=== PATIENT | female | born 1985 | race African-American/Black ===

== ENCOUNTER 2017-01-09 09:18 | Emergency (ER) | payer OTHER ==
[2017-01-09 10:00] VITALS: BP 103/53
[2017-01-09] MEDS ORDERED: Ketorolac INJ* 30 MG/ML 1 ML VIAL IM ONE (10:21)
[2017-01-09] MEDS ORDERED: Ondansetron ODT TAB* 4 MG PO ONE (10:22)
--- NOTE | 2017-01-09 11:17 | UC ---
Abdominal Pain Female HPI - HPI Summary HPI Summary: 31 yo female with the onset of severe RUQ abd pain and nausea that started yesterday no fever no vomitng no relief with motrin states she was dxed with gallstones a few months ago was supposed to see a surgeon to have it out but moved here states she saw a gi doctor (first name Jonas) on [address] had blood work and MRI states she has an appt with him this week () - History of Current Complaint Chief Complaint: UCAbdominalPain Stated Complaint: ABDOMINAL COMPLAINT Time Seen by Provider: 01/09/17 10:16 Hx Obtained From: Patient Hx Last Menstrual Period: 12/25/16 Onset/Duration: Sudden Onset, Lasting Hours Timing: Constant Severity Initially: Severe Severity Currently: Severe Pain Intensity: 8 Pain Scale Used: 0-10 Numeric Location: Discrete At: RUQ Radiates: No Character: Sharp Aggravating Factor(s): Nothing Alleviating Factor(s): Nothing Associated Signs and Symptoms: Positive: Decreased Appetite, Nausea. Negative: Diaphoresis, Fever, Cough, Chest Pain, Dizzy, Back Pain, Constipation, Blood in Stool, Urinary Symptoms, Vaginal Bleeding, Vaginal Discharge, Vomiting, Diarrhea Allergies/Adverse Reactions: Allergies Allergy/AdvReac Type Severity Reaction Status Date / Time Hydrocodone [From Vicodin] Allergy Eyes Verified 01/09/17 09:48 Itchy/Swollen/Red/Watery PMH/Surg Hx/FS Hx/Imm Hx Previously Healthy: Yes - known gall stones - Surgical History Surgical History: None - Family History Known Family History: Positive: Hypertension, Diabetes - Social History Alcohol Use: None Substance Use Type: None Smoking Status (MU): Never Smoked Tobacco Review of Systems Constitutional: Negative Skin: Negative Eyes: Negative ENT: Negative Respiratory: Negative Cardiovascular: Negative Gastrointestinal: Abdominal Pain Genitourinary: Negative Motor: Negative Neurovascular: Negative Musculoskeletal: Negative Neurological: Negative Psychological: Negative All Other Systems Reviewed And Are Negative: Yes Physical Exam Triage Information Reviewed: Yes Appearance: Well-Appearing, Well-Nourished, Pain Distress Vital Signs: Initial Vital Signs Temp 100.1 F 01/09/17 09:50 Pulse 87 01/09/17 09:50 Resp 20 01/09/17 09:50 BP 103/53 01/09/17 09:50 Pulse Ox 100 01/09/17 09:50 Eyes: Positive: Conjunctiva Clear ENT: Positive: Hearing grossly normal, Pharynx normal. Negative: Nasal congestion, Nasal drainage, Tonsillar swelling, Tonsillar exudate, Trismus, Muffled/hoarse voice Dental: Negative: Gross Decay/Caries @, Dental Fracture @, Abscess @ Neck: Positive: Supple, Nontender Respiratory: Positive: Lungs clear, Normal breath sounds, No respiratory distress, No accessory muscle use Cardiovascular: Positive: RRR, No Murmur Abdomen Description: Positive: Soft. Negative: Nontender - tender RUQ, Distended, Hepatomegaly, Splenomegaly Bowel Sounds: Positive: Present Musculoskeletal: Positive: ROM Intact, No Edema Neurological: Positive: Alert Psychological Exam: Normal Skin Exam: Normal Re-Evaluation - Re-Evaluation First Eval Re-Evaluation Time: 11:20 Change: Improved - some decreased pain/no nausea Abd Pain Female Course/Dx - Course Course Of Treatment: states she can take percocets - Differential Dx/Diagnosis Provider Diagnoses: Gall Bladder disease Discharge - Discharge Plan Condition: Stable Disposition: HOME Prescriptions: Ondansetron TAB* [Zofran Tab*] 4 mg PO Q6H PRN #10 tab PRN Reason: Nausea oxyCODONE/Acetamin 5/325 MG* [Percocet 5/325 TAB*] 1 tab PO Q4H PRN #16 tab MDD 4 PRN Reason: Pain - Severe Patient Education Materials: Gallstones (ED) Forms: *Work Release Referrals: Tayo Birch MD [Medical Doctor] - As Soon As Possible (SURGEON) Non Staff,Doctor [Primary Care Provider] - Additional Instructions: See your provider Thurs as planned if things get worse: Increase PAIN, VOMITING, FEVER or if your urine turns dark...you need to go to the ER you will need to see a surgeon to have your gall bladder out
== END 2017-01-09 11:40 | disposition home or self-care (01) ==
LOC: UCEAST 09:18
DX: K82.9 Disease of gallbladder, unspecified (principal); Z88.5 Allergy status to narcotic agent
CPT/HCPCS: 99202; A9270-GY; G0463; J1885

== ENCOUNTER 2019-01-09 19:06 | Emergency (ER) | payer OTHER ==
[2019-01-09 19:19] VITALS: BP 118/66
--- NOTE | 2019-01-09 19:40 | UC ---
Abdominal Pain Female HPI - HPI Summary HPI Summary: 33 yo female presents with pelvic pain. She tells me that for the last 3 days she has had b/l pelvic pain that is worse in the LLQ. Today she began to have some spotting vaginal bleeding. Her LMP was 1 week ago and was normal per pt. She states she is usually very regular with her menstrual cycle and this spotting is abnormal for her. She does not take any control and has been having unprotected intercourse with her boyfriend. She mentions that she has had UTIs in the past and this discomfort feels very similar. She is also having some urinary frequency and bladder pressure. She denies vaginal discharge, odor , or rashes. No flank pain, vomiting, or nausea. No hx of ovarian cysts or ectopic pregnancies. - History of Current Complaint Chief Complaint: UCAbdominalPain Stated Complaint: ABD PAIN Time Seen by Provider: 01/09/19 19:24 Hx Obtained From: Patient Hx Last Menstrual Period: 01/01/19 Onset/Duration: Sudden Onset Severity Initially: Moderate Severity Currently: Moderate Pain Intensity: 6 Allergies/Adverse Reactions: Allergies Allergy/AdvReac Type Severity Reaction Status Date / Time hydrocodone Allergy Eyes Verified 01/09/19 19:34 Itchy/Swollen/Red/Watery MS Hydrocodone [From Vicodin] Allergy Eyes Verified 01/09/17 09:48 Itchy/Swollen/Red/Watery PMH/Surg Hx/FS Hx/Imm Hx - Additional Past Medical History Additional PMH: None - Surgical History Surgical History: Yes Surgery Procedure, Year, and Place: D&C 2012 - Family History Known Family History: Positive: Hypertension, Diabetes - Social History Lives: With Family Alcohol Use: None Substance Use Type: None Smoking Status (MU): Never Smoked Tobacco Review of Systems All Other Systems Reviewed And Are Negative: Yes Constitutional: Positive: Negative Skin: Positive: Negative Respiratory: Positive: Negative Cardiovascular: Positive: Negative Gastrointestinal: Positive: Other - Pelvic pain left >right Genitourinary: Positive: Negative Neurovascular: Positive: Negative Neurological: Positive: Negative Psychological: Positive: Negative Physical Exam - Summary Physical Exam Summary: GENERAL: NAD. WDWN. No pain distress. SKIN: No rashes, sores, lesions, or open wounds. NECK: Supple. Nontender. No lymphadenopathy. CHEST: CTAB. No r/r/w. No accessory muscle use. Breathing comfortably and in no distress. CV: RRR. Without m/r/g. Pulses intact. Cap refill <2seconds ABDOMEN: Soft. Mild TTP LLQ/Left pelvis. No distention or guarding. No CVA tenderness. Bowel sounds present. No McBurney point tenderness. NEURO: Alert. PSYCH: Age appropriate behavior. Triage Information Reviewed: Yes Vital Signs: Initial Vital Signs Temp 98.9 F 01/09/19 19:16 Pulse 92 01/09/19 19:16 Resp 18 01/09/19 19:16 BP 118/66 01/09/19 19:16 Pulse Ox 100 01/09/19 19:16 Laboratory Tests 01/09/19 01/09/19 19:22 19:26 POC Urine Color Yellow POC Urine Clarity Clear POC Urine pH 7.0 POC Ur Specif [place] 1.020 POC Urine Protein Negative POC Ur Glucose (UA) Negative POC Urine Ketones Negative POC Urine Blood Trace-intact A POC Urine Nitrite Negative POC Urine Bilirubin Negative POC Urine Urobilinogen 0.2 POC U Leukocyte Esteras Negative POC Ur Test Negative Vital Signs Reviewed: Yes Abd Pain Female Course/Dx - Course Course Of Treatment: She declined pelvic exam today. UA with trace blood. Urine negative. US: IMPRESSION: 1. Large fibroid. 2. Otherwise normal pelvic ultrasound. Discussed results with pt and encouraged her to follow up with OBGYN. She is requesting to be treated for a UTI at this time while awaiting urine culture results as she has had UTIs in the past and this feels similar. - Differential Dx/Diagnosis Provider Diagnosis: Pelvic pain, Urinary frequency Discharge - Sign-Out/Discharge Documenting (check all that apply): Patient Departure All imaging exams completed and their final reports reviewed: No Studies - Discharge Plan Condition: Stable Disposition: HOME Prescriptions: Nitrofurantoin Monohyd/M-Cryst [Macrobid 100 mg Capsule] 100 mg PO BID #10 cap Patient Education Materials: Pelvic Pain in Women (ED) Referrals: No Primary Care Phys,NOPCP [Primary Care Provider] - Dennis Fair MD [Medical Doctor] - If Needed Additional Instructions: If you develop a fever, shortness of breath, chest pain, new or worsening symptoms - please call your PCP or go to the ED immediately. Your symptoms are similar to UTIs you have had in the past, thus we are treating you for this tonight. - Billing Disposition and Condition Condition: STABLE Disposition: Home
[2019-01-09] MEDS ORDERED: Nitrofurantoin Macrocrystals* 50 MG CAP PO ONE (20:45)
--- NOTE | 2019-01-11 14:49 | UC ---
- Progress Note Progress Note: please notify pt NO UTI stop antibiotic Course/Dx - Diagnoses Provider Diagnoses: Pelvic pain, Urinary frequency Discharge - Sign-Out/Discharge Documenting (check all that apply): Post-Discharge Follow Up All imaging exams completed and their final reports reviewed: No Studies - Discharge Plan Condition: Stable Disposition: HOME Prescriptions: Nitrofurantoin Monohyd/M-Cryst [Macrobid 100 mg Capsule] 100 mg PO BID #10 cap Patient Education Materials: Pelvic Pain in Women (ED) Referrals: No Primary Care Phys,NOPCP [Primary Care Provider] - Dennis Fair MD [Medical Doctor] - If Needed Additional Instructions: If you develop a fever, shortness of breath, chest pain, new or worsening symptoms - please call your PCP or go to the ED immediately. Your symptoms are similar to UTIs you have had in the past, thus we are treating you for this tonight. - Billing Disposition and Condition Condition: STABLE Disposition: Home
== END 2019-01-09 21:00 | disposition home or self-care (01) ==
LOC: UCEAST 19:06
DX: R10.2 Pelvic and perineal pain (principal); R35.0 Frequency of micturition; R10.32 Left lower quadrant pain; N93.9 Abnormal uterine and vaginal bleeding, unspecified; D25.9 Leiomyoma of uterus, unspecified; Z32.02 Encounter for pregnancy test, result negative; Z87.440 Personal history of urinary (tract) infections; Z88.5 Allergy status to narcotic agent
CPT/HCPCS: 76830; 81003; 84702; 87086; 99212; A9270-GY; G0463

== ENCOUNTER 2019-01-21 14:14 | Emergency (ER) | payer OTHER ==
[2019-01-21 14:23] VITALS: BP 145/82
[2019-01-21] MEDS ORDERED: ALPRAZolam TAB* 0.5 MG PO ONE (14:42)
[2019-01-21] MEDS ORDERED: LORazepam TAB(*) 1 MG PO ONE (14:47)
--- NOTE | 2019-01-21 14:47 | UC ---
Shortness of Breath HPI - HPI Summary HPI Summary: has history of anxiety in the past has had an rx for klonopin (as nothing else works). 4 days of not sleeping, nausea-poor po intact and nausea - History of Current Complaint Chief Complaint: UCGeneralIllness Stated Complaint: ANXIETY Time Seen by Provider: 01/21/19 14:27 Hx Obtained From: Patient Hx Last Menstrual Period: 01/20/19 ?: No Onset/Duration: Gradual Onset, Lasting Days - 4, Still Present Timing: Constant Current Severity: Moderate Aggrevating Factors: Nothing Alleviating Factors: Nothing - Allergy/Home Medications Allergies/Adverse Reactions: Allergies Allergy/AdvReac Type Severity Reaction Status Date / Time hydrocodone Allergy Eyes Verified 01/21/19 14:23 Itchy/Swollen/Red/Watery shrimp Allergy Difficulty Verified 01/21/19 14:23 Breathing PMH/Surg Hx/FS Hx/Imm Hx Previously Healthy: No Psychological History: Anxiety - Surgical History Surgical History: Yes Surgery Procedure, Year, and Place: D&C 2012 - Family History Known Family History: Positive: Hypertension, Diabetes - Social History Occupation: Employed Full-time Lives: With Family Alcohol Use: None Substance Use Type: None Smoking Status (MU): Never Smoked Tobacco Review of Systems All Other Systems Reviewed And Are Negative: Yes Constitutional: Positive: Negative Skin: Positive: Negative Eyes: Positive: Negative ENT: Positive: Negative Respiratory: Positive: Negative Cardiovascular: Positive: Negative Gastrointestinal: Positive: Nausea Genitourinary: Positive: Negative Motor: Positive: Negative Neurovascular: Positive: Negative Musculoskeletal: Positive: Negative Neurological: Positive: Negative Psychological: Positive: Anxious Is Patient Immunocompromised?: No Physical Exam Triage Information Reviewed: Yes Appearance: Well-Appearing, No Pain Distress, Well-Nourished Vital Signs: Initial Vital Signs Temp 98.3 F 01/21/19 14:18 Pulse 111 01/21/19 14:18 Resp 20 01/21/19 14:18 BP 145/82 01/21/19 14:18 Pulse Ox 100 01/21/19 14:18 Vital Signs Reviewed: Yes Eye Exam: Normal Eyes: Positive: Conjunctiva Clear ENT Exam: Normal ENT: Positive: Normal ENT inspection, Hearing grossly normal, TMs normal, Uvula midline. Negative: Nasal congestion, Tonsillar swelling, Trismus, Muffled voice , Hoarse voice, Dental tenderness, Sinus tenderness Dental Exam: Normal Neck exam: Normal Neck: Positive: Supple, Nontender, No Lymphadenopathy Respiratory Exam: Normal Respiratory: Positive: Chest non-tender, Lungs clear, Normal breath sounds, No respiratory distress, No accessory muscle use Cardiovascular Exam: Normal Cardiovascular: Positive: RRR, No Murmur, Pulses Normal, Brisk Capillary Refill Abdominal Exam: Normal Abdomen Description: Positive: Nontender, No Organomegaly, Soft. Negative: CVA Tenderness (R), CVA Tenderness (L) Musculoskeletal Exam: Normal Musculoskeletal: Positive: Strength Intact, ROM Intact, No Edema Neurological Exam: Normal Neurological: Positive: Alert, Muscle Tone Normal Psychological Exam: Normal Skin Exam: Normal Shortness of Breath Dx - Course Course Of Treatment: lab studies, ativan times one now, vistaril for home and follow with pcp this week - Differential Dx/Diagnosis Provider Diagnosis: Anxiety Discharge - Sign-Out/Discharge Documenting (check all that apply): Patient Departure All imaging exams completed and their final reports reviewed: No Studies - Discharge Plan Condition: Stable Disposition: HOME Prescriptions: hydrOXYzine pamoate [Vistaril] 25 - 50 mg PO QID PRN #40 capsule PRN Reason: Anxiety Patient Education Materials: Anxiety (ED) Forms: *Work Release Referrals: No Primary Care Phys,NOPCP [Primary Care Provider] - Castro Sarah MD [Medical Doctor] - (follow with doctor in office this week) - Billing Disposition and Condition Condition: STABLE Disposition: Home - Attestation Statements Provider Attestation: I was available for consult. This patient was seen by the [facility]. The patient was not presented to , seen by or examined by tx -Kimmy Lo MD
[2019-01-22 11:13] LABS: ABS Lymphocytes 1.9 10^3/ul (1.0-4.8); ABS Monocytes 0.6 10^3/ul (0-0.8); ABS Neutrophils 5.6 10^3/ul (1.5-7.7); Eosinophil % 0.6 %; Hematocrit 36 % (35-47); Hemoglobin 11.5 g/dL (12.0-16.0); Lymphocyte % 23.4 %; Mean Corpuscular HGB Conc 32 g/dL (31-36); Mean Corpuscular Hemoglobin 26 pg (27-31); Mean Corpuscular Volume 82 fL (80-97); Mean Platelet Volume 10.1 fL (7.4-10.4); Platelet Count 299 10^3/uL (150-450); Red Blood Count 4.38 10^6 /uL (3.70-4.87); Red Cell Distribution Width 14 % (10.5-15); White Blood Count 8.2 10^3/uL (3.5-10.8)
[2019-01-22 11:38] LABS: TSH (Thyroid Stimulating Horm) 1.04 mcIU/mL (0.34-5.60)
[2019-01-22 12:00] LABS: Albumin 4.7 g/dL (3.2-5.2); Calcium 10.1 mg/dL (8.6-10.3); Potassium 3.9 mmol/L (3.5-5.0); Total Bilirubin 0.4 mg/dL (0.2-1.0)
[2019-01-22 12:06] LABS: Albumin/Globulin Ratio 1.5 (1-3); BUN/Creatinine Ratio 6.7 (8-20); EGFR African American 107.7 (>60); Globulin 3.2 g/dL (2-4); Total Protein 7.9 g/dL (6.4-8.9)
--- NOTE | 2019-01-22 15:40 | UC ---
- Progress Note Progress Note: 01/22/2019 Hemoglobin: 11.5 low, MCH:26 low Glucose: 151 elevated, BUN/Creat ration: 6.7 low BUN: 5 low PT tx for anxiety w/ Hydroxyzyne PO. Please call back Pt and advised her of abnormal results. Strongly advised to f/ u w/ her PCP for further management. Thank you Evelio Sanchez PA-C Course/Dx - Diagnoses Provider Diagnoses: Anxiety Discharge - Sign-Out/Discharge Documenting (check all that apply): Patient Departure - D/C home All imaging exams completed and their final reports reviewed: No Studies - Discharge Plan Condition: Stable Disposition: HOME Prescriptions: hydrOXYzine pamoate [Vistaril] 25 - 50 mg PO QID PRN #40 capsule PRN Reason: Anxiety Patient Education Materials: Anxiety (ED) Forms: *Work Release Referrals: Castro Sarah MD [Medical Doctor] - (follow with doctor in office this week) No Primary Care Phys,NOPCP [Primary Care Provider] - - Billing Disposition and Condition Condition: STABLE Disposition: Home
== END 2019-01-21 15:01 | disposition home or self-care (01) ==
LOC: UCEAST 14:14
DX: F41.9 Anxiety disorder, unspecified (principal); R11.0 Nausea; Z88.5 Allergy status to narcotic agent; Z91.013 Allergy to seafood
CPT/HCPCS: 36415; 80053; 84443; 85025; 99212; A9270-GY; G0463